=== PATIENT | male | born 1975 | race Two or more races ===

== ENCOUNTER 2017-01-25 22:42 | Emergency (ER) | payer SELFPAY ==
[~2017-01-25] VITALS: Ht 167.6 cm; Wt 84.1 kg
== END 2017-01-26 02:32 | disposition left against medical advice (07) ==
LOC: ED 01-26 02:26
DX: M79.604 Pain in right leg (principal); Z53.21 Procedure and treatment not carried out due to patient leaving prior to being seen by health care provider

== ENCOUNTER 2017-02-17 01:41 | Emergency (ER) | payer MEDICARE, MEDICAID ==
[~2017-02-17] VITALS: Ht 172.7 cm; Wt 85.3 kg
[2017-02-17 01:43] VITALS: BP 122/82
[2017-02-17] MEDS ORDERED: METF500T4 PO (02:14)
[2017-02-17 03:05] LABS: PATH.CAST-FLAG NOT PRESENT; SPERM-FLAG NOT PRESENT; SRC-FLAG NOT PRESENT; XTAL-FLAG NOT PRESENT; YLC-FLAG NOT PRESENT
== END 2017-02-17 03:23 | disposition home or self-care (01) ==
LOC: ED 03:17
DX: B37.42 Candidal balanitis (principal); B30.9 Viral conjunctivitis, unspecified; E11.9 Type 2 diabetes mellitus without complications
CPT/HCPCS: 81001; 99283